=== PATIENT | male | born 1965 | race Caucasian/White ===

== ENCOUNTER 2018-12-30 11:47 | Observation (INO) ==
[2018-12-30 13:31] LABS: Basophils # (auto) 0.02 K/uL (0-0.2); Basophils % (auto) 0.2 %; Eosinophils # (auto) 0.02 K/uL (0-0.5); Eosinophils % (auto) 0.2 %; Hematocrit (blood only) 53.7 % (42-52); Hemoglobin 18.4 g/dL (14.0-18.0); Immature Granulocytes # (auto) 0.04 K/uL (0.00-0.02); Immature Granulocytes % (auto) 0.3 %; Lymphocytes # (auto) 1.33 K/uL (1.2-3.4); Lymphocytes % (auto) 10.6 %; Mean Corpuscular Hgb Conc 34.3 g/dL (32-36); Mean Corpuscular Volume 87.7 fL (80-100); Mean Platelet Volume 9.8 fL (7.4-10.4); Monocytes # (auto) 0.84 K/uL (0.11-0.59); Monocytes % (auto) 6.7 %; Neutrophils # (auto) 10.34 K/uL (1.4-6.5); Platelet Count 197 K/uL (130-400); RDW Coefficient of Variation 13.5 % (11.5-14.5); RDW Standard Deviation 43.2 fL (36.4-46.3); Red Blood Count 6.12 M/uL (4.7-6.1); White Blood Count 12.59 K/uL (4.8-10.8)
[2018-12-30 13:40] LABS: Appearance Urine Clear (Clear); Bilirubin Urine Negative (Negative); Blood Urine Negative (Negative); Color Urine Yellow; Glucose Urine UA Negative (Negative); Ketones Urine Negative (Negative); Leukocyte Esterase Urine Negative (Negative); Nitrite Urine Negative (Negative); Protein Urine Negative (Negative); Specific Gravity Urine 1.024 (1.000-1.030); Urobilinogen Urine Negative (Negative)
[2018-12-30 13:42] LABS: Partial Thromboplastin Ratio 0.9; Prothrombin Time 10.5 Seconds (9.0-12.0)
[2018-12-30 13:46] LABS: Albumin Level 4.2 gm/dl (3.4-5.0); BUN Creatinine Ratio 8.2 (10-20); Est GFR (African American) 79.3; Est GFR (Non-African American) 68.4; Magnesium 2.2 mg/dl (1.8-2.4); Potassium 3.9 mmol/L (3.5-5.1)
--- NOTE | 2018-12-30 13:53 | XRay Report ---
XR chest 2V routine CLINICAL HISTORY: 53 years-old Male presenting with syncope, currently asymptomatic. TECHNIQUE: PA and lateral views of the chest were obtained. COMPARISON: None. FINDINGS: Cardiomediastinal silhouette normal. Lungs and pleural spaces clear. Mild anterior vertebral body hei ght loss of one of the vertebral body levels at the thoracolumbar junction. Upper abdomen normal. IMPRESSION: 1. No acute cardiopulmonary disease. 2. Mild anterior vertebral body height loss of one of the vertebral bodies at the thoracolumbar junc tion. Correlate with point tenderness to assess for possible compression fracture. The report will be called/faxed according to standard departmental protocol. Electronically signed by: Chad Moulton M.D. 12/30/2018 1:52 PM
[2018-12-30 14:03] LABS: Albumin Globulin Ratio 1.1 (0.9-2); Bilirubin,Total 0.7 mg/dl (0.2-1); Globulin 3.9 gm/dl (2.5-4.0); Total Protein 8.1 gm/dl (6.4-8.2)
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
[2018-12-30] MEDS ORDERED: ONDANSETRON INJ 2 MG/ML 2 ML VIAL IV PRN (16:34)
[2018-12-30] MEDS ORDERED: ACETAMINOPHEN 325 MG TAB PO PRN (16:34)
[2018-12-30 17:36] LABS: Alanine Aminotransferase 44 U/L (12-78); Albumin Level 4.2 gm/dl (3.4-5.0); Alkaline Phosphatase 82 U/L (45-117); Aspartate Aminotransferase 21 U/L (15-37); Bilirubin Direct 0.1 mg/dl (0-0.2); Bilirubin,Total 0.5 mg/dl (0.2-1); Total Protein 8.2 gm/dl (6.4-8.2); Troponin I < 0.015 ng/ml (0-0.045)
--- NOTE | 2018-12-30 18:11 | Ultrasound Report ---
ULTRASOUND OF THE CAROTID ARTERIES CLINICAL HISTORY: Syncope COMPARISON STUDY: None. TECHNIQUE: Real-time, grayscale, and color Doppler sonography of the carotid arteries was performed. Imaging reviewed in the transverse and longitudinal planes. NASCET criteria was utilized for stenosis calcification. FINDINGS: There is minimal atherosclerotic plaque present . The peak systolic velocity within the right internal carotid artery is 81 cm/sec. The systolic velocity ratio of right internal to common carotid artery is 1.0. The peak systolic velocity within the left internal carotid artery is 78 cm/sec. The systolic velocity ratio left internal to common carotid artery is 0.7. Antegrade flow is seen in the vertebral arteries. The external carotid arteries are patent. Blood pressure in the right arm measured 152 mm/Hg. Blood pressure in the left arm measured 123 mm/H g. The right subclavian placed on velocity is 121 cm/s. The left subclavian peak systolic velocity was 1 20 cm/s. Both subclavian waveforms appear normal. The slight left versus right blood pressure discrep vito, is therefore unlikely to be of clinical significance. IMPRESSION: No evidence of hemodynamically significant carotid stenosis. Electronically signed by: Ramon Bourgeois M.D. 12/30/2018 6:09 PM
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
[2018-12-31 03:22] VITALS: TEMP 97.9
[2018-12-31 04:19] LABS: Hemoglobin 17.3 g/dL (14.0-18.0); Mean Corpuscular Hgb Conc 33.9 g/dL (32-36); Mean Corpuscular Volume 88.1 fL (80-100); Mean Platelet Volume 10.1 fL (7.4-10.4); Platelet Count 189 K/uL (130-400); RDW Coefficient of Variation 13.5 % (11.5-14.5); RDW Standard Deviation 43.6 fL (36.4-46.3); Red Blood Count 5.79 M/uL (4.7-6.1); White Blood Count 9.16 K/uL (4.8-10.8)
[2018-12-31 04:38] LABS: Alanine Aminotransferase 40 U/L (12-78); Albumin Level 3.8 gm/dl (3.4-5.0); Aspartate Aminotransferase 15 U/L (15-37); BUN Creatinine Ratio 9.6 (10-20); Blood Urea Nitrogen 11 mg/dl (7-18); Carbon Dioxide 31 mmol/L (21-32); Chloride 106 mmol/L (98-107); Creatinine Clr Calc Pharmacy 94.1 ml/min; Est GFR (African American) 82.6; Est GFR (Non-African American) 71.3; Glucose 98 mg/dl (70-99); Magnesium 2.3 mg/dl (1.8-2.4); Potassium 4.1 mmol/L (3.5-5.1); Sodium 139 mmol/L (136-145)
[2018-12-31 04:41] LABS: Albumin Globulin Ratio 1.1 (0.9-2); Alkaline Phosphatase 65 U/L (45-117); Globulin 3.5 gm/dl (2.5-4.0); HDL Cholesterol 47 mg/dl; LDL Cholesterol Direct 169 mg/dl; Phosphorus 3.1 mg/dl (2.5-4.9); Total Protein 7.3 gm/dl (6.4-8.2); Triglycerides 132 mg/dl (0-150); Troponin I < 0.015 ng/ml (0-0.045)
[2018-12-31 06:46] LABS: Estimated Average Glucose 111 mg/dl; Hemoglobin A1C 5.5 % (4.5-5.6)
[2018-12-31 07:36] VITALS: O2SAT 95
--- NOTE | 2018-12-31 08:09 | Hospitalist Progress Note ---
Date of Service December 31, 2018 Assessment & Plan (1) Syncope: - Admit for observation in tele - Check Troponin, trend x 2 more sets - EKG reviewed and is negative for ST wave inversions or signs of ischemia - Check carotid doppler - 2D echo ordered - Check LDL, HDL and triglycerides with am labs - pt was previously on statin therapy and took himself off it yrs ago. - Check A1C - Hgb elevated at 18 K on admission - likely related to slight dehydration and smoking. Monitor. Occasional smoking when drinking alcohol was also encouraged to stop. - Consider cardiology or neuro consult if worsening sx. (2) HLD (hyperlipidemia): - Check lipids with am labs - will likely need statin therapy. (3) Obesity (BMI 30.0-34.9): - Diet and exercise encouraged for BM of 32. - Encouraged healthier fluid intake like water vs. diet soda. (4) DVT prophylaxis: - lovenox subq Physical Exam 2 Vital Signs (Past 24 Hours): Last Vital Signs Temp 36.6 C 12/31/18 07:35 Pulse 67 12/31/18 07:35 Resp 18 12/31/18 07:35 BP 134/75 12/31/18 07:35 Pulse Ox 95 12/31/18 07:35
[2018-12-31 11:54] VITALS: BP 147/88; PULSE 89
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
== END 2018-12-31 15:37 | disposition home or self-care (01) ==
LOC: ED 11:47 → 2S 11:47 → SUATTDRO 15:21 → 2S 15:45